=== PATIENT | male | born 1995 | race Caucasian/White ===

== ENCOUNTER 2019-09-07 06:33 | Emergency (ER) | payer MEDICAID ==
[2019-09-07] MEDS ORDERED: propofoL 100 ML ONE (06:50)
[2019-09-07] MEDS ORDERED: Midazolam 1 MG/ML 5 ML SDV ONE ×2 (07:00)
[2019-09-07] MEDS ORDERED: fentaNYL 100 MCG/2 ML SDV ONE ×4 (07:00→08:12)
[2019-09-07] MEDS ORDERED: Etomidate 2 MG/ML 20 ML SDV IVPUSH ONE (07:00)
[2019-09-07] MEDS ORDERED: fentaNYL 2500 MCG in Normal Saline 250 ML IV SCH (07:00)
[2019-09-07] MEDS ORDERED: Midazolam 50 MG in Sodium Chloride 0.9% 40 ML IV SCH (07:00)
[2019-09-07] MEDS ORDERED: Propofol 200 MG/20 ML SDV ONE (07:00)
[2019-09-07] MEDS ORDERED: Rocuronium 50 MG/5 ML Vial ONE (07:00)
[2019-09-07] MEDS ORDERED: Succinylcholine 200 MG/10 ML MDV ONE (07:00)
[2019-09-07] MEDS ORDERED: ceFAZolin/Dextrose,Iso-Osmotic 2 GM/50 ML Duplex Bag IV ONE (07:04)
[2019-09-07] MEDS ORDERED: ceFAZolin 2 GM in Premix Bag 1 BAG IV ONE (07:05)
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
== END 2019-09-07 09:22 ==
LOC: EDBD 06:33 → JD.ED 06:33
DX: T30.0 Burn of unspecified body region, unspecified degree (principal); T31.9 Burns involving 90% or more of body surface; X08.8XXA Exposure to other specified smoke, fire and flames, initial encounter
CPT/HCPCS: 31500; 36415; 71045; 71045-26; 80053; 80307; 83605; 85025; 85610; 85730; 86850; 86900; 86901; 99285-25; 99291; J0330; J0690; J2250; J2704; J3010; J3490; J7030; J7050